=== PATIENT | female | born 1940 | race Two or more races ===

== ENCOUNTER 2017-06-16 21:58 | Emergency (ER) | payer MEDICARE ==
[~2017-06-16] VITALS: Ht 172.7 cm; Wt 59.0 kg
[2017-06-16 23:07] LABS: BASOPHILS % 3.3 % (0.0-2.0); EOSINOPHILS % 5.8 % (0.0-5.0); HEMATOCRIT. 31.7 % (36.0-48.0); HEMOGLOBIN. 10.7 g/dL (12.0-16.0); LYMPHOCYTES % 20.8 % (20.0-50.0); MEAN CORPUSCULAR HEMOGLOBIN 36.9 pg (28.0-32.0); MEAN CORPUSCULAR VOLUME 109.4 fL (81.0-99.0); MEAN PLATELET VOLUME 10.8 fl (7.4-10.4); MONOCYTES % 3.7 % (2.0-8.0); NEUTROPHILS % 66.4 % (40.0-76.0); PLATELET 105 x1000/uL (130-400); RED CELL DISTRIBUTION WIDTH 17.9 % (11.6-14.6)
[2017-06-16 23:14] LABS: CHLORIDE 107 mEq/L (98-107)
[2017-06-16 23:17] LABS: CARBON DIOXIDE 26 mEq/L (21-32)
[2017-06-16 23:21] LABS: PROTHROMBIN TIME 10.8 sec (9.4-11.6)
[2017-06-16 23:23] LABS: TROPONIN I < 0.02 ng/mL (0.00-0.04)
[2017-06-16 23:49] LABS: BG BASE EXCESS -1.6 mmol/L (-2.0-2.0); BG CARBOXYHEMOGLOBIN 0.2 % (0.5-1.5); BG DEOXYHEMOGLOBIN 3.4 % (0.0-5.0); BG FRACTION INSPIRED OXYGEN 21; BG METHEMOGLOBIN 0.1 % (0.0-1.5); BG OXYGEN SATURATION 96.6 % (92.0-98.5); BG OXYHEMOGLOBIN 96.3 % (94.0-97.0); BG PCO2 32.9 mmHg (35.0-45.0); BG PH 7.443 (7.350-7.450); BG PO2 91.5 mmHg (75.0-100.0); BG SAMPLE SITE RIGHT RADIAL; BG TOTAL HEMOGLOBIN 10.6 g/dL (12.0-18.0); BG VENT MODE ROOM AIR
[2017-06-17 01:58] VITALS: BP 140/57
== END 2017-06-17 02:04 | disposition home or self-care (01) ==
LOC: ER 22:25
DX: R05 Cough (principal); R42 Dizziness and giddiness; R53.1 Weakness; R06.02 Shortness of breath; J44.9 Chronic obstructive pulmonary disease, unspecified; I35.0 Nonrheumatic aortic (valve) stenosis; I11.9 Hypertensive heart disease without heart failure; Z95.0 Presence of cardiac pacemaker; Z95.1 Presence of aortocoronary bypass graft; Z95.5 Presence of coronary angioplasty implant and graft; Z88.0 Allergy status to penicillin; Z88.1 Allergy status to other antibiotic agents; Z91.040 Latex allergy status
CPT/HCPCS: 36415; 36600; 71010; 80053; 82375; 82805; 83605; 83880; 84484; 85025; 85610; 87040; 93005; 99285

== ENCOUNTER 2017-06-27 13:31 | Inpatient (IN) | payer MEDICARE ==
[~2017-06-27] VITALS: Ht 165.1 cm; Wt 55.3 kg
[2017-06-27] MEDS ORDERED: ASPI-1159 PO (13:48)
[2017-06-27] MEDS ORDERED: ALPR0.5T PO (13:48)
[2017-06-27] MEDS ORDERED: CLOP75TA16 PO (13:48)
[2017-06-27] MEDS ORDERED: NITROGLYCERIN OINT 1GM/INCH UDPKT TD STA (14:26)
[2017-06-27] MEDS ORDERED: MORPHINE SULFATE 4 MG/ML CPJ (NOT FOR IM USE) IV STA (14:26)
[2017-06-27] MEDS ORDERED: ASPIRIN 325MG EC TABLET PO ONE (14:30)
[2017-06-27 14:52] LABS: HEMOGLOBIN. 9.1 g/dL (12.0-16.0); MEAN CORPUSCULAR HEMOGLOBIN 35.7 pg (28.0-32.0); MEAN CORPUSCULAR VOLUME 109.8 fL (81.0-99.0); MEAN PLATELET VOLUME 12.7 fl (7.4-10.4); PLATELET 128 x1000/uL (130-400); RED BLOOD CELL COUNT 2.55 mill/uL (4.2-5.4); RED CELL DISTRIBUTION WIDTH 17.3 % (11.6-14.6)
[2017-06-27 15:02] LABS: CARBON DIOXIDE 26 mEq/L (21-32); CHLORIDE 106 mEq/L (98-107)
[2017-06-27 15:06] LABS: TROPONIN I < 0.02 ng/mL (0.00-0.04)
[2017-06-27] MEDS ORDERED: HYDROCODONE/ACETAMINOPHEN 5/325MG TABLET PO ONE (15:30)
[2017-06-27 16:00] LABS: ATYPICAL LYMPHOCYTES 2
[2017-06-27 16:01] LABS: PLATELET ESTIMATE SLIGHTLY DECREASED
[2017-06-27 20:00] VITALS: BP 90/43
[2017-06-27 22:00] VITALS: BP 90/43
[2017-06-27] MEDS ORDERED: DEXT 5%/0.45% NACL 500ML 500 ML IV SCH (22:15)
[2017-06-27] MEDS ORDERED: ZOLPIDEM TARTRATE 5MG TABLET PO PRN (22:15)
[2017-06-27] MEDS ORDERED: MORPHINE SULFATE 4 MG/ML CPJ (NOT FOR IM USE) IV PRN (22:15)
[2017-06-27] MEDS: DEXT 5%/0.45% NACL 1000ML 1,000 ML IV SCH (23:28)
[2017-06-28] VITALS: BP 93/52
[2017-06-28] MEDS: ALPRAZOLAM 0.5 MG TABLET PO SCH ×3 (00:37→16:52)
[2017-06-28] MEDS: IPRATROPIUM/ALBUTEROL 0.5-3(2.5)MG/3ML NEB HHN SCH ×6 (01:07→19:58)
[2017-06-28 04:00] VITALS: BP 88/57
[2017-06-28 07:22] LABS: TRIOIODOTHYRONINE TOTAL 0.94 ng/ml (0.60-1.81)
[2017-06-28 07:34] LABS: HEMATOCRIT. 24.4 % (36.0-48.0); MEAN CORPUSCULAR HEMOGLOBIN 36.1 pg (28.0-32.0); MEAN CORPUSCULAR VOLUME 110.2 fL (81.0-99.0); MEAN PLATELET VOLUME 11.8 fl (7.4-10.4); PLATELET 97 x1000/uL (130-400); RED BLOOD CELL COUNT 2.22 mill/uL (4.2-5.4); RED CELL DISTRIBUTION WIDTH 16.9 % (11.6-14.6)
[2017-06-28 07:36] LABS: T4 FREE 0.95 ng/dL (0.76-1.46)
[2017-06-28 08:00] VITALS: BP 106/58
[2017-06-28 08:13] LABS: CLARITY URINE CLEAR (CLEAR); COLOR URINE YELLOW (YELLOW); GLUCOSE URINE NEGATIVE (NEGATIVE); KETONES URINE NEGATIVE (NEGATIVE); LEUKOCYTE ESTERASE URINE TRACE (NEGATIVE); NITRITE URINE NEGATIVE (NEGATIVE); OCCULT BLOOD URINE NEGATIVE (NEGATIVE); PROTEIN URINE NEGATIVE (NEGATIVE); SPECIFIC GRAVITY URINE 1.021 (1.005-1.030); UROBILINOGEN URINE 0.2 E.U./dL (0.2-1.0)
[2017-06-28] MEDS ORDERED: PANTOPRAZOLE SODIUM 40 MG/VIAL IV SCH (09:00)
[2017-06-28] MEDS: FAMOTIDINE 20MG/2ML VIAL IV SCH (09:16)
[2017-06-28] MEDS: ASPIRIN 81MG TABLET PO SCH (09:16)
[2017-06-28] MEDS: CLOPIDOGREL 75MG TABLET PO SCH (09:16)
[2017-06-28] MEDS ORDERED: LIDOCAINE HCL/PF 1% 2ML VIAL ONE (09:35)
[2017-06-28 10:25] LABS: BG BASE EXCESS -3.4 mmol/L (-2.0-2.0); BG CARBOXYHEMOGLOBIN 0.4 % (0.5-1.5); BG DEOXYHEMOGLOBIN 5.8 % (0.0-5.0); BG HCO3 ACT 20.7 mmol/L (22.0-26.0); BG METHEMOGLOBIN 0.4 % (0.0-1.5); BG OXYGEN SATURATION 94.2 % (92.0-98.5); BG OXYHEMOGLOBIN 93.4 % (94.0-97.0); BG PH 7.415 (7.350-7.450); BG PO2 77.7 mmHg (75.0-100.0); BG SAMPLE SITE RIGHT RADIAL; BG TOTAL HEMOGLOBIN 8.2 g/dL (12.0-18.0); BG VENT MODE NASAL CANNULA
[2017-06-28 12:00] VITALS: BP 107/58
[2017-06-28] MEDS: FOLIC ACID 1 MG, THIAMINE HCL 100 MG, MVI, ADULT NO.1 10 ML in DEXTROSE 5% WATER 1,000 ML IV SCH ×4 (12:08)
[2017-06-28] MEDS: HYDROCODONE/ACETAMINOPHEN 5/325MG TABLET PO PRN (12:08)
[2017-06-28 12:45] LABS: VITAMIN B12 SERUM > 2000.0 pg/mL (211-911)
[2017-06-28 13:51] LABS: PLATELET ESTIMATE DECREASED
[2017-06-28 14:37] LABS: CORTISOL 15.9 ucg/dL
[2017-06-28 15:46] VITALS: BP 101/54
[2017-06-28] MEDS: FERROUS SULFATE 325MG TABLET PO SCH (16:52)
[2017-06-28] MEDS: DEXT 5%/0.45% NACL 1000ML 1,000 ML IV SCH (18:19)
[2017-06-28 20:00] VITALS: BP 90/53
[2017-06-28] MEDS: ASCORBIC ACID 500 MG TABLET PO SCH (21:20)
[2017-06-29] VITALS (10 sets, daily range): BP systolic 91–124; BP diastolic 48–105
[2017-06-29] MEDS: IPRATROPIUM/ALBUTEROL 0.5-3(2.5)MG/3ML NEB HHN SCH ×6 (01:30→20:00)
[2017-06-29] MEDS: HYDROCODONE/ACETAMINOPHEN 5/325MG TABLET PO PRN (06:09)
[2017-06-29] MEDS ORDERED: REGADENOSON 0.4 MG/5 ML IV SCH (07:00)
[2017-06-29] MEDS ORDERED: DIATR MEGLU/DIATRIZOATE SOLN 30ML PO SCH (08:15)
[2017-06-29] MEDS: ASCORBIC ACID 500 MG TABLET PO SCH ×2 (08:49→20:42)
[2017-06-29] MEDS: CLOPIDOGREL 75MG TABLET PO SCH (08:49)
[2017-06-29] MEDS: FERROUS SULFATE 325MG TABLET PO SCH ×3 (08:49→18:44)
[2017-06-29] MEDS: ALPRAZOLAM 0.5 MG TABLET PO SCH ×3 (08:49→16:00)
[2017-06-29] MEDS: ASPIRIN 81MG TABLET PO SCH (08:49)
[2017-06-29] MEDS: FAMOTIDINE 20MG/2ML VIAL IV SCH (08:49)
[2017-06-29 09:27] LABS: HEMATOCRIT. 23.6 % (36.0-48.0); HEMOGLOBIN. 7.9 g/dL (12.0-16.0); MEAN CORPUSCULAR HEMOGLOBIN 36.2 pg (28.0-32.0); MEAN CORPUSCULAR VOLUME 108.7 fL (81.0-99.0); RED BLOOD CELL COUNT 2.17 mill/uL (4.2-5.4); RED CELL DISTRIBUTION WIDTH 17.3 % (11.6-14.6)
[2017-06-29 10:27] LABS: PLATELET ESTIMATE DECREASED
[2017-06-29 10:28] LABS: MEAN PLATELET VOLUME 11.4 fl (7.4-10.4); PLATELET 92 x1000/uL (130-400)
[2017-06-29 13:12] LABS: CANCER ANTIGEN 125 5.1 U/mL (0.0-38.1)
[2017-06-29] MEDS ORDERED: SODIUM CHLORIDE 0.9% 10ML VIAL ONE (14:48)
[2017-06-29] MEDS ORDERED: IOHEXOL-300 100 ML BOTTLE ONE (14:48)
[2017-06-29] MEDS: FOLIC ACID 1 MG, THIAMINE HCL 100 MG, MVI, ADULT NO.1 10 ML in DEXTROSE 5% WATER 1,000 ML IV SCH ×4 (18:44)
[2017-06-29] MEDS: DEXT 5%/0.45% NACL 1000ML 1,000 ML IV SCH (19:21)
[2017-06-30] VITALS (8 sets, daily range): BP systolic 95–116; BP diastolic 55–68
[2017-06-30] MEDS: IPRATROPIUM/ALBUTEROL 0.5-3(2.5)MG/3ML NEB HHN SCH ×6 (00:30→20:40)
[2017-06-30 03:07] LABS: HEMATOCRIT 29.2 % (36.0-48.0); HEMOGLOBIN 9.6 g/dL (12.0-16.0)
[2017-06-30] MEDS: ALPRAZOLAM 0.5 MG TABLET PO SCH ×4 (08:00→23:52)
[2017-06-30] MEDS: FERROUS SULFATE 325MG TABLET PO SCH ×3 (08:27→16:49)
[2017-06-30] MEDS: HYDROCODONE/ACETAMINOPHEN 5/325MG TABLET PO PRN (08:27)
[2017-06-30] MEDS: ASPIRIN 81MG TABLET PO SCH (08:28)
[2017-06-30] MEDS: FAMOTIDINE 20MG/2ML VIAL IV SCH (08:28)
[2017-06-30] MEDS: CLOPIDOGREL 75MG TABLET PO SCH (08:28)
[2017-06-30] MEDS: ASCORBIC ACID 500 MG TABLET PO SCH ×2 (08:28→21:59)
[2017-06-30] MEDS ORDERED: REGADENOSON 0.4 MG/5 ML IV ONE ×2 (11:00→12:47)
[2017-06-30] MEDS: DEXT 5%/0.45% NACL 1000ML 1,000 ML IV SCH (18:54)
[2017-07-01] VITALS: BP 100/58
[2017-07-01] MEDS: IPRATROPIUM/ALBUTEROL 0.5-3(2.5)MG/3ML NEB HHN SCH ×6 (00:30→20:39)
[2017-07-01 04:00] VITALS: BP 100/58
[2017-07-01 06:11] LABS: HEMATOCRIT. 25.4 % (36.0-48.0); HEMOGLOBIN. 8.4 g/dL (12.0-16.0); MEAN CORPUSCULAR HEMOGLOBIN 34.8 pg (28.0-32.0); MEAN CORPUSCULAR VOLUME 104.8 fL (81.0-99.0); MEAN PLATELET VOLUME 11.7 fl (7.4-10.4); PLATELET 95 x1000/uL (130-400); RED BLOOD CELL COUNT 2.42 mill/uL (4.2-5.4); RED CELL DISTRIBUTION WIDTH 20.6 % (11.6-14.6)
[2017-07-01 06:48] LABS: CARBON DIOXIDE 23 mEq/L (21-32); CHLORIDE 102 mEq/L (98-107)
[2017-07-01 08:00] VITALS: BP 98/54
[2017-07-01] MEDS: CLOPIDOGREL 75MG TABLET PO SCH (08:53)
[2017-07-01] MEDS: FAMOTIDINE 20MG/2ML VIAL IV SCH (08:53)
[2017-07-01] MEDS: ASCORBIC ACID 500 MG TABLET PO SCH ×2 (08:53→21:22)
[2017-07-01] MEDS: ALPRAZOLAM 0.5 MG TABLET PO SCH ×3 (08:54→23:55)
[2017-07-01] MEDS: FERROUS SULFATE 325MG TABLET PO SCH ×3 (08:54→17:00)
[2017-07-01] MEDS: ASPIRIN 81MG TABLET PO SCH (08:54)
[2017-07-01 11:47] VITALS: BP 93/59
[2017-07-01 17:11] LABS: HEMATOCRIT. 23.9 % (36.0-48.0); HEMOGLOBIN. 8.1 g/dL (12.0-16.0); MEAN CORPUSCULAR VOLUME 103.7 fL (81.0-99.0); MEAN PLATELET VOLUME 12.4 fl (7.4-10.4); PLATELET 107 x1000/uL (130-400); RED BLOOD CELL COUNT 2.31 mill/uL (4.2-5.4); RED CELL DISTRIBUTION WIDTH 20.4 % (11.6-14.6)
[2017-07-01 18:11] LABS: PLATELET ESTIMATE DECREASED
[2017-07-01] MEDS: DEXT 5%/0.45% NACL 1000ML 1,000 ML IV SCH (18:19)
[2017-07-01 18:33] LABS: PLATELET ESTIMATE DECREASED
[2017-07-01 19:12] LABS: INFLUENZA A AB CF Negative (Neg:<1:8); INFLUENZA B AB CF Negative (Neg:<1:8)
[2017-07-01 20:00] VITALS: BP 98/58
[2017-07-02] VITALS (10 sets, daily range): BP systolic 90–109; BP diastolic 51–65
[2017-07-02] MEDS: HYDROCODONE/ACETAMINOPHEN 5/325MG TABLET PO PRN (00:01)
[2017-07-02] MEDS: IPRATROPIUM/ALBUTEROL 0.5-3(2.5)MG/3ML NEB HHN SCH ×6 (01:05→21:11)
[2017-07-02 06:56] LABS: HEMATOCRIT. 23.6 % (36.0-48.0); HEMOGLOBIN. 7.7 g/dL (12.0-16.0); MEAN CORPUSCULAR HEMOGLOBIN 34.6 pg (28.0-32.0); PLATELET 104 x1000/uL (130-400); RED BLOOD CELL COUNT 2.23 mill/uL (4.2-5.4); RED CELL DISTRIBUTION WIDTH 20.4 % (11.6-14.6)
[2017-07-02] MEDS: FERROUS SULFATE 325MG TABLET PO SCH ×3 (08:37→16:30)
[2017-07-02] MEDS: ASCORBIC ACID 500 MG TABLET PO SCH ×2 (08:37→22:05)
[2017-07-02] MEDS: ASPIRIN 81MG TABLET PO SCH ×2 (08:37→08:47)
[2017-07-02] MEDS: FAMOTIDINE 20MG/2ML VIAL IV SCH (08:37)
[2017-07-02] MEDS: CLOPIDOGREL 75MG TABLET PO SCH (08:37)
[2017-07-02] MEDS: ALPRAZOLAM 0.5 MG TABLET PO SCH ×3 (08:38→16:30)
[2017-07-02 13:14] LABS: PLATELET ESTIMATE SLIGHTLY DECREASED
[2017-07-02 14:46] LABS: CLARITY URINE CLEAR (CLEAR); COLOR URINE YELLOW (YELLOW); GLUCOSE URINE NEGATIVE (NEGATIVE); KETONES URINE NEGATIVE (NEGATIVE); LEUKOCYTE ESTERASE URINE TRACE (NEGATIVE); NITRITE URINE NEGATIVE (NEGATIVE); OCCULT BLOOD URINE NEGATIVE (NEGATIVE); PH URINE 5.5 (4.5-8.0); PROTEIN URINE NEGATIVE (NEGATIVE); SPECIFIC GRAVITY URINE 1.016 (1.005-1.030); UROBILINOGEN URINE 0.2 E.U./dL (0.2-1.0)
[2017-07-02 17:07] LABS: QFT MITOGEN VALUE 8.37 IU/mL (.); QFT TB AG VALUE 0.04 IU/mL (.); QFT TB GOLD Negative (Negative)
[2017-07-02] MEDS: DEXT 5%/0.45% NACL 1000ML 1,000 ML IV SCH (17:09)
[2017-07-02 19:37] LABS: HAPTOGLOBIN 172 mg/dL (30-200)
[2017-07-03] VITALS: BP 102/62
[2017-07-03] MEDS: ALPRAZOLAM 0.5 MG TABLET PO SCH (00:03)
[2017-07-03] MEDS: HYDROCODONE/ACETAMINOPHEN 5/325MG TABLET PO PRN (00:05)
[2017-07-03 04:00] VITALS: BP 97/59
[2017-07-03] MEDS: IPRATROPIUM/ALBUTEROL 0.5-3(2.5)MG/3ML NEB HHN SCH ×5 (04:00→20:20)
[2017-07-03 06:38] LABS: HEMATOCRIT 26.4 % (36.0-48.0); HEMOGLOBIN 8.9 g/dL (12.0-16.0)
[2017-07-03 08:00] VITALS: BP 100/50
[2017-07-03] MEDS: FERROUS SULFATE 325MG TABLET PO SCH ×3 (09:10→17:40)
[2017-07-03] MEDS: ASPIRIN 81MG TABLET PO SCH (09:10)
[2017-07-03] MEDS: CLOPIDOGREL 75MG TABLET PO SCH (09:10)
[2017-07-03] MEDS: FAMOTIDINE 20MG/2ML VIAL IV SCH (09:10)
[2017-07-03] MEDS: ASCORBIC ACID 500 MG TABLET PO SCH ×2 (09:10→21:00)
[2017-07-03 12:00] VITALS: BP 103/58
[2017-07-03] MEDS ORDERED: ACETAMINOPHEN 650MG/20.3ML UDC PO PRN ×2 (13:30)
[2017-07-03 16:00] VITALS: BP 105/59
[2017-07-03] MEDS ORDERED: ACETAMINOPHEN 500MG TABLET PO PRN (16:45)
[2017-07-03] MEDS: DEXT 5%/0.45% NACL 1000ML 1,000 ML IV SCH (17:12)
[2017-07-03] MEDS: SUCRALFATE 1 G/10 ML UDC PO SCH ×2 (17:40→21:36)
[2017-07-03 20:00] VITALS: BP 104/60
[2017-07-04] VITALS: BP 92/55
[2017-07-04] MEDS: IPRATROPIUM/ALBUTEROL 0.5-3(2.5)MG/3ML NEB HHN SCH ×7 (00:10→20:58)
[2017-07-04 04:00] VITALS: BP 97/56
[2017-07-04] MEDS: SUCRALFATE 1 G/10 ML UDC PO SCH ×4 (06:31→20:15)
[2017-07-04 06:43] LABS: HEMATOCRIT. 26.2 % (36.0-48.0); HEMOGLOBIN. 8.6 g/dL (12.0-16.0); MEAN CORPUSCULAR HEMOGLOBIN 33.9 pg (28.0-32.0); MEAN CORPUSCULAR VOLUME 102.7 fL (81.0-99.0); PLATELET 115 x1000/uL (130-400); RED BLOOD CELL COUNT 2.55 mill/uL (4.2-5.4); RED CELL DISTRIBUTION WIDTH 20.8 % (11.6-14.6)
[2017-07-04 08:00] VITALS: BP 100/56
[2017-07-04] MEDS: ASCORBIC ACID 500 MG TABLET PO SCH ×2 (08:07→20:15)
[2017-07-04] MEDS: FAMOTIDINE 20MG TABLET PO SCH (08:07)
[2017-07-04] MEDS: CLOPIDOGREL 75MG TABLET PO SCH (08:07)
[2017-07-04] MEDS: FERROUS SULFATE 325MG TABLET PO SCH ×3 (08:07→17:40)
[2017-07-04] MEDS: ASPIRIN 81MG TABLET PO SCH (08:08)
[2017-07-04 12:00] VITALS: BP 94/55
[2017-07-04 14:28] LABS: BG BASE EXCESS -0.6 mmol/L (-2.0-2.0); BG CARBOXYHEMOGLOBIN 0.5 % (0.5-1.5); BG DEOXYHEMOGLOBIN 10.8 % (0.0-5.0); BG FRACTION INSPIRED OXYGEN 21; BG HCO3 ACT 22.3 mmol/L (22.0-26.0); BG METHEMOGLOBIN 0.3 % (0.0-1.5); BG OXYGEN SATURATION 89.1 % (92.0-98.5); BG OXYHEMOGLOBIN 88.4 % (94.0-97.0); BG PCO2 29.9 mmHg (35.0-45.0); BG PO2 55.5 mmHg (75.0-100.0); BG SAMPLE SITE LEFT BRACHIAL; BG TOTAL HEMOGLOBIN 9.1 g/dL (12.0-18.0); BG VENT MODE ROOM AIR
[2017-07-04] MEDS: HYDROCODONE/ACETAMINOPHEN 5/325MG TABLET PO PRN (15:55)
[2017-07-04 16:00] VITALS: BP 103/61
[2017-07-04 16:20] LABS: PLATELET ESTIMATE DECREASED
[2017-07-04] MEDS: DEXT 5%/0.45% NACL 1000ML 1,000 ML IV SCH (17:28)
[2017-07-04 20:00] VITALS: BP 84/46
[2017-07-04] MEDS ORDERED: FERROUS SULFATE 325MG TABLET PO NR (20:15)
[2017-07-05] VITALS: BP 92/43
[2017-07-05] MEDS: IPRATROPIUM/ALBUTEROL 0.5-3(2.5)MG/3ML NEB HHN SCH ×6 (01:09→20:30)
[2017-07-05 04:00] VITALS: BP 101/58
[2017-07-05 08:00] VITALS: BP 104/56
[2017-07-05 08:01] LABS: BG BASE EXCESS -3.2 mmol/L (-2.0-2.0); BG CARBOXYHEMOGLOBIN 0.1 % (0.5-1.5); BG DEOXYHEMOGLOBIN 5.2 % (0.0-5.0); BG HCO3 ACT 20.1 mmol/L (22.0-26.0); BG METHEMOGLOBIN 0.1 % (0.0-1.5); BG OXYGEN SATURATION 94.8 % (92.0-98.5); BG OXYHEMOGLOBIN 94.6 % (94.0-97.0); BG PCO2 29.2 mmHg (35.0-45.0); BG PH 7.455 (7.350-7.450); BG SAMPLE SITE LEFT RADIAL; BG TOTAL HEMOGLOBIN 8.3 g/dL (12.0-18.0); BG VENT MODE NASAL CANNULA
[2017-07-05] MEDS: ASPIRIN 81MG TABLET PO SCH (08:38)
[2017-07-05] MEDS: SUCRALFATE 1 G/10 ML UDC PO SCH ×4 (08:38→20:07)
[2017-07-05] MEDS: CLOPIDOGREL 75MG TABLET PO SCH (08:38)
[2017-07-05] MEDS: ASCORBIC ACID 500 MG TABLET PO SCH ×2 (08:38→20:07)
[2017-07-05] MEDS: FAMOTIDINE 20MG TABLET PO SCH (08:38)
[2017-07-05] MEDS: FERROUS SULFATE 325MG TABLET PO SCH ×3 (08:38→18:03)
[2017-07-05 09:07] LABS: IMMUNOGLOBULIN A 271 mg/dL (64-422); IMMUNOGLOBULIN G 1187 mg/dL (700-1600); IMMUNOGLOBULIN M 156 mg/dL (26-217)
[2017-07-05 12:00] VITALS: BP 97/56
[2017-07-05 12:00] LABS: HEMATOCRIT. 25.6 % (36.0-48.0); HEMOGLOBIN. 8.5 g/dL (12.0-16.0); MEAN CORPUSCULAR HEMOGLOBIN 34.3 pg (28.0-32.0); MEAN CORPUSCULAR VOLUME 102.9 fL (81.0-99.0); MEAN PLATELET VOLUME 11.4 fl (7.4-10.4); PLATELET 117 x1000/uL (130-400); RED BLOOD CELL COUNT 2.49 mill/uL (4.2-5.4); RED CELL DISTRIBUTION WIDTH 20.9 % (11.6-14.6)
[2017-07-05] MEDS ORDERED: MAGNESIUM HYDROXIDE 400MG/5ML 30ML UDC PO PRN (13:00)
[2017-07-05] MEDS: ACETAMINOPHEN 500MG TABLET PO PRN (13:12)
[2017-07-05] MEDS ORDERED: FUROSEMIDE 20MG/2ML VIAL IVP NR (13:15)
[2017-07-05] MEDS ORDERED: LEVOFLOXACIN 500MG PREMIX 100 ML IV SCH ×2 (15:30→17:00)
[2017-07-05 16:00] VITALS: BP 99/47
[2017-07-05 17:54] LABS: PLATELET ESTIMATE DECREASED
[2017-07-05] MEDS: DEXT 5%/0.45% NACL 1000ML 1,000 ML IV SCH (18:04)
[2017-07-05 20:00] VITALS: BP 98/47
[2017-07-05 20:25] LABS: CLARITY URINE CLEAR (CLEAR); COLOR URINE YELLOW (YELLOW); GLUCOSE URINE NEGATIVE (NEGATIVE); KETONES URINE NEGATIVE (NEGATIVE); LEUKOCYTE ESTERASE URINE NEGATIVE (NEGATIVE); NITRITE URINE NEGATIVE (NEGATIVE); OCCULT BLOOD URINE NEGATIVE (NEGATIVE); PROTEIN URINE NEGATIVE (NEGATIVE); SPECIFIC GRAVITY URINE 1.017 (1.005-1.030); UROBILINOGEN URINE 0.2 E.U./dL (0.2-1.0)
[2017-07-05] MEDS: HYDROCODONE/ACETAMINOPHEN 5/325MG TABLET PO PRN (23:15)
[2017-07-06] VITALS (7 sets, daily range): BP systolic 110–158; BP diastolic 44–61
[2017-07-06] MEDS: IPRATROPIUM/ALBUTEROL 0.5-3(2.5)MG/3ML NEB HHN SCH ×6 (00:22→20:36)
[2017-07-06] MEDS: SUCRALFATE 1 G/10 ML UDC PO SCH ×4 (07:28→21:00)
[2017-07-06] MEDS: FERROUS SULFATE 325MG TABLET PO SCH ×3 (07:29→18:16)
[2017-07-06] MEDS: ASPIRIN 81MG TABLET PO SCH (08:37)
[2017-07-06 08:52] LABS: T4 FREE 1.24 ng/dL (0.76-1.46)
[2017-07-06] MEDS: FAMOTIDINE 20MG TABLET PO SCH (09:03)
[2017-07-06] MEDS: CLOPIDOGREL 75MG TABLET PO SCH (09:03)
[2017-07-06] MEDS: ASCORBIC ACID 500 MG TABLET PO SCH ×2 (09:03→21:00)
[2017-07-06] MEDS ORDERED: LEVOFLOXACIN 250MG PREMIX 50 ML IV SCH (11:00)
[2017-07-06] MEDS: NYSTATIN 100,000 UNITS/ML 5ML UDC SSW SCH ×2 (12:55→18:16)
[2017-07-06] MEDS: ACETAMINOPHEN 500MG TABLET PO PRN (13:07)
== END 2017-07-06 23:10 | disposition home health service (06) | DRG 206 ==
LOC: ER 15:22 → 8WST 15:23 → ENRESERV 19:05 → 8WST 07-03 18:26
PROVIDERS: ADMIT Specialist; ATTEND Specialist
PROC: 30233N1 Transfusion of Nonautologous Red Blood Cells into Peripheral Vein, Percutaneous Approach (ICD-10-PCS; principal; 2017-06-29)
DX: M94.0 Chondrocostal junction syndrome [Tietze] (principal); J96.11 Chronic respiratory failure with hypoxia; B37.0 Candidal stomatitis; J44.9 Chronic obstructive pulmonary disease, unspecified; I65.29 Occlusion and stenosis of unspecified carotid artery; I31.3 Pericardial effusion (noninflammatory); D53.9 Nutritional anemia, unspecified; E11.9 Type 2 diabetes mellitus without complications; I10 Essential (primary) hypertension; E78.5 Hyperlipidemia, unspecified; I25.10 Atherosclerotic heart disease of native coronary artery without angina pectoris; I35.0 Nonrheumatic aortic (valve) stenosis; K57.90 Diverticulosis of intestine, part unspecified, without perforation or abscess without bleeding; D50.9 Iron deficiency anemia, unspecified; K21.9 Gastro-esophageal reflux disease without esophagitis; R63.4 Abnormal weight loss; Z95.0 Presence of cardiac pacemaker; Z88.8 Allergy status to other drugs, medicaments and biological substances; Z91.040 Latex allergy status; Z88.0 Allergy status to penicillin; Z91.018 Allergy to other foods; Z79.899 Other long term (current) drug therapy; Z90.710 Acquired absence of both cervix and uterus; Z95.5 Presence of coronary angioplasty implant and graft; Z87.891 Personal history of nicotine dependence; Z82.49 Family history of ischemic heart disease and other diseases of the circulatory system; Z80.52 Family history of malignant neoplasm of bladder; Z79.82 Long term (current) use of aspirin; Z68.20 Body mass index [BMI] 20.0-20.9, adult
CPT/HCPCS: 36415; 36600; 70450; 71010; 72170; 74178; 76700; 78452; 80048; 80053; 80076; 81001; 81003; 82270; 82330; 82375; 82378; 82533; 82607; 82668; 82728; 82746; 82784; 82805; 82962; 83010; 83036; 83540; 83550; 83615; 83690; 83735; 83880; 83921; 83970; 84439; 84443; 84480; 84481; 84484; 85014; 85018; 85025; 85044; 86301; 86304; 86334; 86480; 86694; 86710; 86850; 86880; 86900; 86920; 87015; 87040; 87045; 87086; 87427; 87449; 87493; 93005; 93017; 93306; 94620; 94640; 94664; 96374; 97110; 97116; 97162; 97530; 99285; A4216; A9500; C1893; J1940; J1956; J2270; J2785; J3411; J3490; J7040; J7050; J7070; J7620; P9016; Q9963; Q9967